=== PATIENT | male | born 1965 | race Two or more races ===

== ENCOUNTER 2018-02-12 02:09 | Emergency (ER) | payer MEDICARE, OTHER ==
[~2018-02-12] VITALS: Ht 170.2 cm; Wt 73.7 kg
[2018-02-12 02:12] VITALS: BP 155/83
[2018-02-12] MEDS ORDERED: [UNRECOGNIZED DRUG - OTHER] (02:17)
[2018-02-12] MEDS ORDERED: ROBAXIN (02:17)
== END 2018-02-12 03:05 | disposition home or self-care (01) ==
LOC: ED 02:49
DX: R07.89 Other chest pain (principal); V49.49XA Driver injured in collision with other motor vehicles in traffic accident, initial encounter; Y93.89 Activity, other specified; Y92.410 Unspecified street and highway as the place of occurrence of the external cause; Y99.8 Other external cause status
CPT/HCPCS: 71046; 99283